=== PATIENT | female | born 1945 | race Caucasian/White ===

== ENCOUNTER → 2018-01-19 10:55 | Outpatient (CLI) | payer MEDICARE, SELFPAY ==
--- NOTE | 2018-01-19 | DI.MG.S_ITS ---
BILATERAL DIGITAL SCREENING MAMMOGRAM 3D/2D WITH CAD: 01/19/2018 CLINICAL: Routine screening. Comparison is made to exams dated: 01/08/2017 mammogram, 01/04/2016 mammogram, and 01/02/2015 mammogram - [facility]. The tissue of both breasts is heterogeneously dense. This may lower the sensitivity of mammography. Current study was also evaluated with a Computer Aided Detection (CAD) system. There is a biopsy clip in the left breast. No significant masses, calcifications, or other findings are seen in either breast. There has been no significant interval change. IMPRESSION: NEGATIVE There is no mammographic evidence of malignancy. A 1 year screening mammogram is recommended. This exam was interpreted at Station ID: [id number]. NOTE: For mammograms, a report in lay terms will be sent to the patient. Approximately 15% of breast malignancies will not be visualized mammographically. In the management of a palpable breast mass, a negative mammogram must not discourage biopsy of a clinically suspicious lesion. Electronically Signed By: Clayton andrews/lucien:01/19/2018 17:17:24 copy to: TONYA HEATH, fax: [phone] letter sent: Normal Exam ACR BI-RADS Category 1: Negative 3341F
== END ==
DX: Z12.31 Encounter for screening mammogram for malignant neoplasm of breast (principal)
CPT/HCPCS: 77063; 77067

== ENCOUNTER → 2018-08-03 15:07 | Outpatient (CLI) | payer MEDICARE, SELFPAY ==
[2018-08-03 16:10] LABS: BUN Creatinine Ratio 21.4 (6-22); Blood Urea Nitrogen 15 mg/dL (7-17); Estimated Glomerular Filt Rate > 60.0 mL/min (>60)
== END ==
DX: Z01.812 Encounter for preprocedural laboratory examination (principal)
CPT/HCPCS: 36415; 82565; 84520

== ENCOUNTER → 2018-08-05 14:49 | Outpatient (CLI) | payer MEDICARE, SELFPAY ==
--- NOTE | 2018-08-05 14:55 | DI.RAD.S_ITS ---
PROCEDURE: XR KNEE RT 3V INDICATIONS: R knee pain TECHNIQUE: 3 views of the knee were acquired. COMPARISON: None. FINDINGS: Bones: No fractures or dislocations. No suspicious bony lesions. Mild tricompartmental osteoarthritis. Soft tissues: Trace suprapatellar joint effusion. No suspicious soft tissue calcifications. IMPRESSION: 1. Mild tricompartmental osteoarthritis. 2. Trace, nonspecific joint effusion. Dictated by: Cierra Trevino MD, PhD on 08/05/2018 at 16:20 Approved by: Cierra Trevino MD, PhD on 08/05/2018 at 16:22
== END ==
PROVIDERS: Visit Provider Physician Assistant
DX: M25.561 Pain in right knee (principal); M17.11 Unilateral primary osteoarthritis, right knee; M25.461 Effusion, right knee
CPT/HCPCS: 73562

== ENCOUNTER → 2018-08-06 07:23 | Outpatient (CLI) | payer MEDICARE, SELFPAY ==
--- NOTE | 2018-08-06 | DI.MRI.S_ITS ---
PROCEDURE: MR KNEE RT WO CON INDICATIONS: RIGHT KNEE PAIN TECHNIQUE: Noncontrast sagittal PD fast spin echo and T2 fast spin echo with fat saturation, sagittal 3-D FLASH with fat saturation; coronal T1 spin echo and PD fast spin echo with fat saturation, and axial PD fast spin echo with fat saturation through the knee. COMPARISON: None. FINDINGS: Image quality: Excellent. Menisci: There is an oblique tear involving posterior horn of medial meniscus extending to inferior articulating surface. No evidence of focal lateral meniscal tear. The meniscal root ligaments appear intact. Cruciate ligaments: The anterior and posterior cruciate ligaments appear intact. Medial structures: There is low to moderate grade proximal MCL sprain and intrasubstance partial-thickness tear near its femoral insertion. The posterior oblique ligament, semimembranosus tendon insertions, oblique popliteal ligament, and meniscocapsular junction appear intact. Visualized portions of the pes anserinus tendons appear normal. No abnormal bursal fluid. Lateral structures: The lateral collateral ligament, long and short heads of the biceps femoris tendon appear intact. The popliteus tendon appears normal; the popliteofibular ligament appears intact. The posterosuperior and anteroinferior popliteomeniscal fascicles appear intact. The arcuate and fabellofibular ligaments appear intact, on either side of the lateral inferior geniculate artery. Iliotibial band appears normal. Anterior structures: The quadriceps and patellar tendons appear intact. Patellar alignment is normal. No femoral trochlear dysplasia or ventral trochlear prominence. No edema in the infrapatellar fat pad. Bones and cartilage: No bone marrow contusions or fractures. Uwzy-zi-ywdawran tricompartment osteoarthritis is seen with joint space narrowing, thinning of articulating cartilage is a subchondral sclerosis. Patellar cartilage is intact. Joint space: There is small to moderate amount of joint effusion. No Daniel's cyst. Normal appearing synovial plicae are incidentally noted. IMPRESSION: 1. Oblique tear involving posterior horn of medial meniscus extending to inferior articulating surface. No focal lateral meniscal tear. 2. Mild tricompartmental osteoarthritis. No marrow edema. No fracture or dislocation. Small amount of joint fluid. No gross loose body. 3. Cruciate ligaments are intact. Sprain and low to moderate grade intrasubstance partial-thickness tear involving proximal MCL near its femoral insertion. Dictated by: Justice Raya M.D. on 08/06/2018 at 8:39 Approved by: Justice Raya M.D. on 08/06/2018 at 8:42
--- NOTE | 2018-08-06 07:26 | DI.MRI.S_ITS ---
PROCEDURE: MR ABDOME PELVIS WWO CON INDICATIONS: Uterine fibroids on US TECHNIQUE: Coronal HASTE, axial 2D FLASH in- and [id number]; axial breath-hold T2 FSE; dynamic axial VIBE during IV gadolinium administration; postgadolinium coronal VIBE or 2D FLASH with fat saturation from the hepatic dome to the iliac crests. COMPARISON: [employer] [facility], US, US PELVIC COMPLETE, 08/03/2018, 9:03. FINDINGS: Image quality: Excellent. Lung bases: No basal pleural effusions. There are small bilateral pulmonary nodules within the visualized lung bases measuring up to approximately 4 mm in the left lower lobe. Solid organs: There are 2 small cysts in the liver, measuring up to 1.5 cm in the right lobe. Gallbladder appears within normal limits without gallstones. No biliary ductal dilatation. The pancreas is normal morphology. No peripancreatic edema or fluid collections. Spleen is normal in size. No adrenal nodules. Kidneys demonstrate no hydronephrosis. There are small cysts in the kidneys. Nodes and vessels: No mesenteric or retroperitoneal lymphadenopathy by size criteria. The aorta is normal in caliber. Bowel and peritoneum: Small and large bowel loops are normal in caliber. No intraperitoneal free fluid. Pelvis: Multiple intramural mass lesions are demonstrated within the uterus with hypointense signal on T1 and T2. The largest measures up to 2.6 x 2.8 x 2.8 cm within the right myometrium. No definite submucosal involvement. Following contrast administration, there is avid enhancement. In addition, within the left axilla, there is a mass measuring 2.8 x 2.7 x 2.3 cm demonstrating similar imaging characteristics with T1 and T2 hypointensity with enhancement following contrast administration. There is a a pedicle connecting the left adnexal mass to the uterus. The findings are compatible with a pedunculated exophytic fibroid. A few small nabothian cysts are demonstrated within the cervix. The ovaries are atrophic in size. Bones and soft tissues: Visualized osseous structures demonstrate no suspicious focal lesions. No ventral abdominal hernias. IMPRESSION: 1. Multiple uterine fibroids demonstrated as well as an exophytic left adnexal pedunculated subserosal fibroid. 2. Multiple small pulmonary nodules within the visualized lung bases. Recommend further evaluation with dedicated chest CT. Dictated by: Kapil Hidalgo M.D. on 08/06/2018 at 13:07 Approved by: Kapil Hidalgo M.D. on 08/06/2018 at 13:23
== END ==
DX: M25.561 Pain in right knee (principal); S83.411A Sprain of medial collateral ligament of right knee, initial encounter; S83.241A Other tear of medial meniscus, current injury, right knee, initial encounter; M17.11 Unilateral primary osteoarthritis, right knee; D25.1 Intramural leiomyoma of uterus; D25.2 Subserosal leiomyoma of uterus; N88.8 Other specified noninflammatory disorders of cervix uteri; N28.1 Cyst of kidney, acquired; R91.8 Other nonspecific abnormal finding of lung field
CPT/HCPCS: 72197; 73721; A9579

== ENCOUNTER → 2018-08-10 14:11 | Outpatient (CLI) | payer MEDICARE, SELFPAY ==
--- NOTE | 2018-08-10 14:17 | DI.CT.S_ITS ---
PROCEDURE: CT CHEST W CON INDICATIONS: Pulmonary nodules on lung bases seen on MRI TECHNIQUE: After the administration of intravenous contrast, 5 mm thick sections acquired from the pulmonary apices to the posterior costophrenic angles. 7 mm thick coronal and sagittal MIP reformats were acquired. For radiation dose reduction, the following was used: automated exposure control, adjustment of mA and/or kV according to patient size. COMPARISON: [facility], MR, MR ABDOMEN PELVIS [facility] CON, 08/06/2018, 8:45. FINDINGS: Image quality: Excellent. Lungs and pleura: No acute air space opacities. No pleural effusions or pneumothorax. Central and peripheral airways are patent and normal in caliber. Mediastinum: Heart size is normal. No pericardial effusion. No mediastinal or hilar adenopathy by size criteria. Thoracic aorta and central pulmonary arteries are normal in size. Esophagus is normal in caliber. No hiatal hernia. Bones and chest wall: No suspicious bony lesions. No vertebral body compression fractures. No axillary or supraclavicular adenopathy by size criteria. Thyroid gland appears normal. Abdomen: Visualized upper abdominal solid organs appear normal. Upper abdominal bowel loops are normal in caliber. IMPRESSION: Three small focal rounded nodule-like findings, 2 on the right and one on the left, at the lung bases during MR scanning 08/06/18 represent vessels seen end on, rather than true pulmonary nodules as can be seen in setting of metastatic disease. Several additional blood vessels elsewhere at the lung bases on CT scanning having similar size and orientation do not produce this MR artifact. No underlying malignancy is present. There is no suspicion for presence of pulmonary embolus (the vessels of interest are specifically pulmonary veins rather than pulmonary arteries). No abnormality is seen elsewhere. Dictated by: Brandon Marie M.D. on 08/11/2018 at 10:09 Approved by: Brandon Marie M.D. on 08/11/2018 at 10:55
== END ==
DX: R91.8 Other nonspecific abnormal finding of lung field (principal)
CPT/HCPCS: 71260; Q9967

== ENCOUNTER → 2019-02-16 11:07 | Outpatient (CLI) | payer MEDICARE, SELFPAY ==
--- NOTE | 2019-02-16 | DI.MG.S_ITS ---
BILATERAL DIGITAL SCREENING MAMMOGRAM 3D/2D WITH CAD: 02/16/2019 CLINICAL: Routine screening. Comparison is made to exams dated: 01/19/2018 mammogram, 01/08/2017 mammogram, and 01/04/2016 mammogram - [facility]. The tissue of both breasts is heterogeneously dense. This may lower the sensitivity of mammography. Current study was also evaluated with a Computer Aided Detection (CAD) system. There is an irregular asymmetry with a circumscribed margin in the left breast middle depth superior region seen on the mediolateral oblique view only. No other significant masses, calcifications, or other findings are seen in either breast. IMPRESSION: INCOMPLETE: NEEDS ADDITIONAL IMAGING EVALUATION The irregular asymmetry in the left breast is indeterminate. Additional views with possible ultrasound are recommended. This exam was interpreted at Station ID: [id number]. NOTE: For mammograms, a report in lay terms will be sent to the patient. Approximately 15% of breast malignancies will not be visualized mammographically. In the management of a palpable breast mass, a negative mammogram must not discourage biopsy of a clinically suspicious lesion. Electronically Signed By: Tonja yuen/lucien:02/16/2019 12:28:18 copy to: TONYA KRAUSE, TONYA SUTHERLAND, fax: [phone] letter sent: Additional Imaging Needed ACR BI-RADS Category 0: Incomplete 3340F
== END ==
DX: Z12.31 Encounter for screening mammogram for malignant neoplasm of breast (principal); R92.8 Other abnormal and inconclusive findings on diagnostic imaging of breast
CPT/HCPCS: 77063; 77067

== ENCOUNTER → 2019-03-04 10:13 | Outpatient (CLI) | payer MEDICARE, SELFPAY ==
--- NOTE | 2019-03-04 10:15 | DI.US.S_ITS ---
LIMITED ULTRASOUND OF LEFT BREAST: 03/04/2019 CLINICAL: Patient returns today to evaluate a focal asymmetry in the left breast. Comparison is made to exams dated: 02/16/2019 mammogram, 01/19/2018 mammogram, 01/08/2017 mammogram, 01/04/2016 mammogram, 01/02/2015 mammogram - [facility], and 02/18/2013 mammogram - [facility]. Color flow and real-time ultrasound of the left breast 1-2 o'clock region were performed. Franklin scale images of the real-time examination were reviewed. No abnormalities were seen sonographically in the left breast to correspond to the asymmetry on mammogram. IMPRESSION: PROBABLY BENIGN No abnormalities were seen sonographically in the left breast. A follow-up mammogram in 6 months is recommended to demonstrate stability of the asymmetry. Exam results were conveyed to the patient by the site promotion agent. This exam was interpreted at Station ID: [id number]. Electronically Signed By: Moises Boss M.D. slc/:03/23/2019 09:32:23 copy to: TONYA HEATH, fax: [phone] letter sent: Followup Recommended Ultrasound BI-RADS: 3 Probably benign
--- NOTE | 2019-03-04 10:15 | DI.MG.S_ITS ---
UNILATERAL LEFT DIGITAL DIAGNOSTIC MAMMOGRAM 3D/2D WITH ADDITIONAL VIEWS: 03/04/2019 CLINICAL: Additional evaluation requested from prior study. Comparison is made to exams dated: 01/19/2018 mammogram, 02/16/2019 mammogram, 01/04/2016 mammogram, 01/02/2015 mammogram, and 01/08/2017 mammogram - [facility]. The tissue of left breast is heterogeneously dense. This may lower the sensitivity of mammography. There is a 6 mm oval equal density asymmetry with a circumscribed margin in the left breast middle depth superior region seen on the mediolateral oblique view only. This is seen in additional views. No other significant masses or calcifications are seen in the breast. IMPRESSION: INCOMPLETE: NEEDS ADDITIONAL IMAGING EVALUATION The 6 mm oval equal density asymmetry in the left breast is indeterminate. An ultrasound is recommended. This exam was interpreted at Station ID: [id number]. NOTE: For mammograms, a report in lay terms will be sent to the patient. Approximately 15% of breast malignancies will not be visualized mammographically. In the management of a palpable breast mass, a negative mammogram must not discourage biopsy of a clinically suspicious lesion. Electronically Signed By: Moises Boss M.D. slc/:03/23/2019 09:37:40 ACR BI-RADS Category 0: Incomplete 3340F
== END ==
DX: R92.8 Other abnormal and inconclusive findings on diagnostic imaging of breast (principal); N64.89 Other specified disorders of breast
CPT/HCPCS: 76642; 77065; G0279

== ENCOUNTER → 2019-11-21 10:04 | Outpatient (CLI) | payer MEDICARE, SELFPAY ==
--- NOTE | 2019-11-21 10:06 | DI.MG.S_ITS ---
UNILATERAL LEFT DIGITAL DIAGNOSTIC MAMMOGRAM 3D/2D SHORT-TERM FOLLOW-UP: 11/21/2019 CLINICAL: Patient returns for a 6 month follow up of the left breast. Comparison is made to exams dated: 03/04/2019 mammogram and 02/16/2019 mammogram - [facility]. The tissue of left breast is heterogeneously dense. This may lower the sensitivity of mammography. There is an oval low density asymmetry with an indistinct margin in the left breast middle depth superior region seen on the mediolateral oblique view only. This is less prominent. No other significant masses or calcifications are seen in the breast. IMPRESSION: PROBABLY BENIGN The oval low density asymmetry in the left breast is probably benign. A follow-up mammogram in 6 months is recommended. A follow-up mammogram in 6 months is recommended to demonstrate stability. Patient will also be due for screening mammogram of contralateral right breast. This exam was interpreted at Station ID: [id number]. NOTE: For mammograms, a report in lay terms will be sent to the patient. Approximately 15% of breast malignancies will not be visualized mammographically. In the management of a palpable breast mass, a negative mammogram must not discourage biopsy of a clinically suspicious lesion. Electronically Signed By: Kapil holliday/:11/21/2019 10:58:57 letter sent: Followup Recommended ACR BI-RADS Category 3: Probably benign 3343F
== END ==
DX: R92.8 Other abnormal and inconclusive findings on diagnostic imaging of breast (principal); N64.89 Other specified disorders of breast
CPT/HCPCS: 77065; G0279

== ENCOUNTER → 2020-05-30 14:04 | Outpatient (CLI) | payer MEDICARE, SELFPAY ==
--- NOTE | 2020-05-30 14:05 | DI.MG.S_ITS ---
BILATERAL DIGITAL DIAGNOSTIC MAMMOGRAM 3D/2D: 05/30/2020 CLINICAL: Short follow up, due bilateral. Comparison is made to exams dated: 11/21/2019 mammogram, 03/04/2019 mammogram, and 02/16/2019 mammogram - [facility]. The tissue of both breasts is heterogeneously dense. This may lower the sensitivity of mammography. The 6 mm oval equal density asymmetry with a circumscribed margin in the left breast middle depth superior region seen on the mediolateral oblique view on prior mammogram studies only is no longer seen. No other significant masses, calcifications, or other findings are seen in either breast. IMPRESSION: BENIGN There is no mammographic evidence of malignancy. A 1 year screening mammogram is recommended. This exam was interpreted at Station ID: [id number]. NOTE: For mammograms, a report in lay terms will be sent to the patient. Approximately 15% of breast malignancies will not be visualized mammographically. In the management of a palpable breast mass, a negative mammogram must not discourage biopsy of a clinically suspicious lesion. Electronically Signed By: Florina garcias/:05/30/2020 14:42:56 letter sent: Normal Exam ACR BI-RADS Category 2: Benign Finding(s) 3342F
== END ==
PROVIDERS: PCP Family Medicine; Referring Provider Family Medicine
DX: R92.2 Inconclusive mammogram (principal); N64.89 Other specified disorders of breast
CPT/HCPCS: 77066; G0279

== ENCOUNTER → 2021-11-28 10:25 | Outpatient (CLI) | payer MEDICARE, SELFPAY ==
--- NOTE | 2021-11-28 | DI.MG.S_ITS ---
BILATERAL DIGITAL SCREENING MAMMOGRAM 3D/2D WITH CAD: 11/28/2021 CLINICAL: Routine screening. Comparison is made to exams dated: 05/30/2020 mammogram, 02/16/2019 mammogram, and 01/19/2018 mammogram - [facility]. The tissue of both breasts is heterogeneously dense. This may lower the sensitivity of mammography. Current study was also evaluated with a Computer Aided Detection (CAD) system. There is a biopsy clip in the left breast. No significant masses, calcifications, or other findings are seen in either breast. There has been no significant interval change. IMPRESSION: NEGATIVE There is no mammographic evidence of malignancy. A 1 year screening mammogram is recommended. This exam was interpreted at Station ID: [id number]. NOTE: For mammograms, a report in lay terms will be sent to the patient. Approximately 15% of breast malignancies will not be visualized mammographically. In the management of a palpable breast mass, a negative mammogram must not discourage biopsy of a clinically suspicious lesion. Electronically Signed By: Adrián Nichols acr/lucien:11/28/2021 13:47:57 letter sent: Normal Exam ACR BI-RADS Category 1: Negative 3341F
== END ==
PROVIDERS: PCP Family Medicine; Referring Provider Family Medicine; Visit Provider Family Medicine
DX: Z12.31 Encounter for screening mammogram for malignant neoplasm of breast (principal)
CPT/HCPCS: 77063; 77067

== ENCOUNTER → 2022-12-01 12:30 | Outpatient (CLI) | payer MEDICARE, SELFPAY ==
--- NOTE | 2022-12-01 | DI.MG.S_ITS ---
BILATERAL DIGITAL SCREENING MAMMOGRAM 3D/2D WITH CAD: 12/01/2022 CLINICAL: Routine screening. Comparison is made to exams dated: 11/28/2021 mammogram, 05/30/2020 mammogram, 02/16/2019 mammogram, 11/21/2019 mammogram, and 03/04/2019 mammogram - [facility]. Both breasts are heterogeneously dense, which may obscure small masses (category c / 51-75% glandular tissue). Current study was also evaluated with a Computer Aided Detection (CAD) system. There is a biopsy clip in the left breast. No significant masses, calcifications, or other findings are seen in either breast. There has been no significant interval change. IMPRESSION: NEGATIVE There is no mammographic evidence of malignancy. A 1 year screening mammogram is recommended. Based on the Tyrer Cuzick model (a risk assessment model) the patient's lifetime risk is 5.9% and her 10 year risk is 5.9%. According to the ACR, ACS, and NCCN guidelines, an annual breast MRI exam along with mammogram is recommended if the patient's lifetime risk is 20% or greater. This exam was interpreted at Station ID: [id number]. NOTE: For mammograms, a report in lay terms will be sent to the patient. Approximately 15% of breast malignancies will not be visualized mammographically. In the management of a palpable breast mass, a negative mammogram must not discourage biopsy of a clinically suspicious lesion. Electronically Signed By: Schuyler lopez/lucien:12/01/2022 13:12:20 letter sent: Normal Exam ACR BI-RADS Category 1: Negative 3341F
== END ==
PROVIDERS: PCP Family Medicine; Referring Provider Family Medicine; Visit Provider Family Medicine
DX: Z12.31 Encounter for screening mammogram for malignant neoplasm of breast (principal)
CPT/HCPCS: 77063; 77067

== ENCOUNTER 2023-05-06 11:51 | Day surgery (SDC) | payer MEDICARE, SELFPAY ==
--- NOTE | 2023-05-06 | PATH_ITS ---
[facility] Accession Number: [id number] No. of containers..01 Tissue . 01 Material submitted: . colon - CECAL POLYP . 01 Diagnosis: Cecal Polyp: Tubular adenoma. MRV 05/08/2023 1231 Local . 01 Electronically signed: . Smith Kapoor MD, PhD, Pathologist NPI- [id number] . 01 Gross description: . CECAL POLYP: Received in formalin is 2 fragment(s) of rodriguez, soft tissue measuring 0.9 x 0.3 x 0.2 cm to 0.4 x 0.2 x 0.1 cm submitted entirely in 1 cassette(s) /AAY 05/07/2023 0356 Local . 01 Pathologist provided ICD-10: D12.0 . 01 CPT . 900087 Specimen Comment: A courtesy copy of this report has been sent to [phone] Performed at: 01 [facility] [address] [place] [address], [place], [place] [id number] MD Kapil Dwyer MD Phone: [phone]
[2023-05-06 12:10] VITALS: BMI 23.3
[2023-05-06 12:22] VITALS: BP 117/68; PULSE 70; RESP 16; TEMP 36.3; O2SAT 97
[2023-05-06] MEDS: LACTATED RINGERS 1,000 ML 42 ML IV (12:24)
--- NOTE | 2023-05-06 12:34 | P.HP_ITS ---
History of Present Illness History of Present Illness Date Patient Seen: 05/06/23 Time Patient Seen: 12:34 Chief complaint: SDC Narrative: Vinod is a 78-year-old woman who is here for colonoscopy. Her last 1 was about 10 years ago and was normal. She recently had a positive Cologuard test. 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 History of third molar tooth extraction Status post tubal ligation Social History household members: spouse Smoking Status: Former smoker alcohol intake: current Meds Home Medications and Allergies Home Medications Medication Instructions Recorded Confirmed Type pravastatin 20 mg tablet 20 mg PO HS ##0 02/02/17 05/06/23 History levothyroxine 25 mcg tablet 25 mcg PO DAILY 08/03/18 05/06/23 History sertraline 25 mg tablet (Zoloft) 50 mg PO DAILY 03/31/23 05/06/23 History sodium,potassium,mag sulfates 17.5 See Rx Instructions PO .COMPLEX 03/31/23 05/06/23 Rx gram-3.13 gram-1.6 gram oral soln #354 mL (Suprep Bowel Prep Kit) aspirin 81 mg capsule 81 mg PO DAILY 05/06/23 05/06/23 History Allergies Allergy/AdvReac Type Severity Reaction Status Date / Time Penicillins [PENICILLINS] Allergy Severe RASH Verified 05/06/23 12:05 Cephalosporins AdvReac elevated Verified 05/06/23 12:05 BP Exam Vital Signs (past 8 hours): - 05/06/23 12:22 Temperature 97.3 F L Pulse Rate 70 Respiratory Rate 16 Blood Pressure 117/68 Pulse Oximetry 97 Const General: No acute distress Assessment & Plan Assessment and plan (1) Positive FIT (fecal immunochemical test): Status: Acute Plan We reviewed the risks and benefits of colonoscopy and she would like to proceed.
--- NOTE | 2023-05-06 13:29 | PM.OP.COLON ---
Operative Date/Time/Diagnoses Date of procedure: 05/06/23 Time of procedure: 13:29 Pre-op diagnosis: Positive fecal immunohistochemical test Post-op diagnosis: same Procedure & Clinicians Study performed: Colonoscopy Same procedure as scheduled: Yes Surgeon: Lamberto Tom Procedure Notes Procedure in detail: Surgeon: Lamberto Tom MD Anesthesia: Janet Soto DO Procedure: The patient was brought to the endoscopy suite, placed in left lateral decubitus position. The patient was connected to monitoring devices. A time-out was performed. Sedation was administered. Once the patient was adequately sedated, a digital rectal exam was performed and was normal. The scope was then inserted and advanced to the cecum where the appendiceal orifice was identified and photographed. The scope was then slowly withdrawn over greater than 6 minutes. The mucosa was thoroughly inspected. There was 2 mm polyp in the cecum removed with a cold snare. Other abnormalities were found throughout the colon. The scope was retroflexed in the rectum. Internal hemorrhoids were noted. The scope was straightened and removed. The patient was awakened and brought to recovery. Scope withdrawal time: 11 minutes Sedation time: 25 minutes EBL: 5 mL Findings: 2 mm cecal polyp and internal hemorrhoids Post-procedure Disposition: PACU
[2023-05-06 13:30] VITALS: BP 125/66; PULSE 61; RESP 15; TEMP 36.9; O2SAT 95
[2023-05-06 13:35] VITALS: BP 125/69; PULSE 62; RESP 12; O2SAT 99
[2023-05-06 13:40] VITALS: BP 134/74; PULSE 66; RESP 12; O2SAT 100
[2023-05-06 13:55] VITALS: BP 136/72; PULSE 66; RESP 18; O2SAT 100
[2023-05-06 14:10] VITALS: BP 146/77; PULSE 64; RESP 12; O2SAT 100
== END 2023-05-06 14:15 | disposition home or self-care (01) ==
PROVIDERS: PCP Registered Nurse; Referring Provider Surgery; Visit Provider Surgery
PROC: 0DJD8ZZ Inspection of Lower Intestinal Tract, Via Natural or Artificial Opening Endoscopic (ICD-10-PCS; CPT 45378; principal; 2023-05-06 13:00)
DX: Z12.11 Encounter for screening for malignant neoplasm of colon (principal); R19.5 Other fecal abnormalities; K64.8 Other hemorrhoids; D12.0 Benign neoplasm of cecum
CPT/HCPCS: 45385; J2704

== ENCOUNTER → 2023-11-09 10:10 | Outpatient (CLI) | payer OTHER, SELFPAY ==
--- NOTE | 2023-11-09 10:11 | DI.RAD.S_ITS ---
PROCEDURE: XR DEXA AXIAL SKELETON INDICATIONS: Screening for osteoporosis COMPARISON: [facility], [place], DEXA AXIAL SKELETON, 02/23/2015, 15:17. FINDINGS: Lumbar Spine: Bone mineral density 1.023 g/cm2, T score -0.2. Left Hip: Bone mineral density 0.844 g/cm2, T score -0.8. Left Femoral Neck: Bone mineral density 0.622 g/cm2, T score -2.0. Right Hip: Bone mineral density 0.838 g/cm2, T score -0.9. Right Femoral Neck: Bone mineral density 0.606 g/cm2, T score -2.2. Fracture Risk Calculation (when applicable): 10-year fracture risk of a major osteoporotic fracture 14% and of a hip fracture 4.1%. (T score greater or equal to -1.0 to: NORMAL) (T score from -1.1 to -2.4: OSTEOPENIA) (T score less than or equal to -2.5: OSTEOPOROSIS) IMPRESSION: Osteopenia. Dictated by: Moises Boss M.D. on 11/09/2023 at 22:04 Approved by: Moises Boss M.D. on 11/09/2023 at 22:06
== END ==
LOC: RAD 10:10
PROVIDERS: PCP Registered Nurse; Referring Provider Registered Nurse; Visit Provider Registered Nurse
DX: Z78.0 Asymptomatic menopausal state (principal); Z13.820 Encounter for screening for osteoporosis; M85.89 Other specified disorders of bone density and structure, multiple sites
CPT/HCPCS: 77080

== ENCOUNTER → 2023-12-01 15:25 | Outpatient (CLI) | payer OTHER, SELFPAY ==
--- NOTE | 2023-12-01 15:27 | DI.US.S_ITS ---
PROCEDURE: US CAROTID DOPPLER BI INDICATIONS: Bilateral carotid artery stenosis TECHNIQUE: Color and pulse Doppler interrogation was performed of both carotid systems, with image documentation and velocity measurements. COMPARISON: None. FINDINGS: Stenosis calculations are based on SRU (Society of Radiologists in Ultrasound) criteria. Right side: Brachial blood pressure: 140/72 mm Hg. Common carotid artery peak systolic velocity: 77 cm/sec. Internal carotid artery peak systolic velocity: 54 cm/sec. Internal carotid artery end diastolic velocity: 13 cm/sec. External carotid artery peak systolic velocity: 66 cm/sec. ICA/CCA peak systolic ratio: 0 point . Franklin scale imaging description: Minimal plaquing Percent internal carotid artery stenosis: Less than 50% . Vertebral artery: Flow direction is antegrade. Left side: Brachial blood pressure: 138/70 mm Hg. Common carotid artery peak systolic velocity: 77 cm/sec. Internal carotid artery peak systolic velocity: 126 cm/sec. Internal carotid artery end diastolic velocity: 25 cm/sec. External carotid artery peak systolic velocity: 77 cm/sec. ICA/CCA peak systolic ratio: 1.7 . Franklin scale imaging description: Minimal plaque Percent internal carotid artery stenosis: 50-69%. Vertebral artery: Flow direction is antegrade. IMPRESSION: 1. 50-69% left internal carotid stenosis. 2. Less than 50% right internal carotid stenosis. 3. Antegrade vertebral artery flow bilaterally. Dictated by: Arian Hodges M.D. on 12/02/2023 at 9:52 Approved by: Arian Hodges M.D. on 12/02/2023 at 9:54
== END ==
LOC: US 15:26
PROVIDERS: PCP Registered Nurse; Referring Provider Registered Nurse; Visit Provider Registered Nurse
DX: I65.23 Occlusion and stenosis of bilateral carotid arteries (principal)
CPT/HCPCS: 93880

== ENCOUNTER → 2023-12-08 12:38 | Outpatient (CLI) | payer OTHER, SELFPAY ==
--- NOTE | 2023-12-08 12:38 | DI.MG.S_ITS ---
BILATERAL DIGITAL SCREENING MAMMOGRAM 3D/2D WITH CAD: 12/08/2023 CLINICAL: Routine screening. Comparison is made to exams dated: 12/01/2022 mammogram, 11/28/2021 mammogram, and 05/30/2020 mammogram - [facility]. Both breasts are heterogeneously dense, which may obscure small masses (category c / 51-75% glandular tissue). Current study was also evaluated with a Computer Aided Detection (CAD) system. There is a biopsy clip in the left breast. No significant masses, calcifications, or other findings are seen in either breast. There has been no significant interval change. IMPRESSION: NEGATIVE There is no mammographic evidence of malignancy. A 1 year screening mammogram is recommended. Based on the Tyrer Cuzick model (a risk assessment model) the patient's lifetime risk is 5.4% and her 10 year risk is 0.0%. According to the ACR, ACS, and NCCN guidelines, an annual breast MRI exam along with mammogram is recommended if the patient's lifetime risk is 20% or greater. This exam was interpreted at Station ID: [id number]. NOTE: For mammograms, a report in lay terms will be sent to the patient. Approximately 15% of breast malignancies will not be visualized mammographically. In the management of a palpable breast mass, a negative mammogram must not discourage biopsy of a clinically suspicious lesion. Electronically Signed By: Schuyler lopez/lucien:12/08/2023 15:59:55 letter sent: Normal Exam ACR BI-RADS Category 1: Negative [id number]
== END ==
PROVIDERS: PCP Registered Nurse; Referring Provider Registered Nurse; Visit Provider Registered Nurse
DX: Z12.31 Encounter for screening mammogram for malignant neoplasm of breast (principal); R92.333 Mammographic heterogeneous density, bilateral breasts
CPT/HCPCS: 77063; 77067

== ENCOUNTER → 2024-12-16 | Outpatient (CLI) | payer OTHER, SELFPAY ==
--- NOTE | 2024-12-16 15:51 | DI.MG.S_ITS ---
MM screening mammo BI: 12/16/2024. BI-RADS: 2 CLINICAL: 79-year old female for bilateral screening mammogram. Tyrer-Cuzick lifetime risk of 3.0%. No personal or first-degree family history of breast cancer. PRIOR EXAMS 12/08/2023, 12/01/2022, 11/28/2021, 05/30/2020, 11/21/2019, 03/04/2019, 02/16/2019, 01/19/2018, 01/08/2017, 01/04/2016, 01/02/2015. MAMMOGRAPHY TECHNIQUE: 2D and 3D (tomosynthesis) digital mammographic views obtained, with additional images as needed for full coverage. Current study was also evaluated with a Computer Aided Detection (CAD) system. DENSITY C. The breasts are heterogeneously dense, which may obscure small masses. MAMMOGRAPHY FINDINGS Right: No suspicious mass, asymmetry, microcalcification, or other abnormality seen. Left: Surgical clip present on the left. There are no suspicious masses, calcifications, or other findings in the breast. IMPRESSION: Right * No evidence of malignancy. Left * No evidence of malignancy with benign findings. RECOMMENDATIONS Bilateral * Annual screening mammography. OVERALL ASSESSMENT CATEGORY BI-RADS-2: Benign. The [employer] recommends annual screening mammography beginning at age 40 for women with average risk of breast cancer. ELECTRONICALLY SIGNED: Dunia Fowler M.D. on 12/19/2024 at 08:38:17 AM PT Interpreting Station ID: [id number]
== END ==
LOC: MAMMO 15:50
PROVIDERS: PCP Family Medicine; Referring Provider Family Medicine; Visit Provider Family Medicine
DX: Z12.31 Encounter for screening mammogram for malignant neoplasm of breast (principal); R92.333 Mammographic heterogeneous density, bilateral breasts
CPT/HCPCS: 77063; 77067

== ENCOUNTER → 2025-04-04 08:19 | Outpatient (CLI) | payer OTHER, SELFPAY ==
--- NOTE | 2025-04-04 08:21 | DI.US.S_ITS ---
PROCEDURE: US CAROTID DOPPLER BI INDICATIONS: BILAT CAROTID ARTERY STENOSIS TECHNIQUE: Color and pulse Doppler interrogation was performed of both carotid systems, with image documentation and velocity measurements. COMPARISON: [facility], , US CAROTID DOPPLER BI, 12/01/2023, 15:41. FINDINGS: Stenosis calculations are based on SRU (Society of Radiologists in Ultrasound) criteria. Right side: Brachial blood pressure: 145/69 mm Hg. Common carotid artery peak systolic velocity: 68 cm/sec. Internal carotid artery peak systolic velocity: 78 cm/sec. Internal carotid artery end diastolic velocity: 22 cm/sec. External carotid artery peak systolic velocity: 64 cm/sec. ICA/CCA peak systolic ratio: 1.2 Franklin scale imaging description: No significant intraluminal plaque. Waveforms are normal without spectral broadening. . Percent internal carotid artery stenosis: Normal . Vertebral artery: Flow direction is antegrade. Left side: Brachial blood pressure: 149/75 mm Hg. Common carotid artery peak systolic velocity: 63 cm/sec. Internal carotid artery peak systolic velocity: 97 cm/sec. Internal carotid artery end diastolic velocity: 26 cm/sec. External carotid artery peak systolic velocity: 66 cm/sec. ICA/CCA peak systolic ratio: 1.5 . Franklin scale imaging description: Small amount of calcified plaque at the carotid bulb and sessile calcified plaque at the proximal ICA. The waveforms remain normal. Percent internal carotid artery stenosis: Less than 50% . Vertebral artery: Flow direction is antegrade. IMPRESSION: 1. In the right carotid artery, there is no hemodynamically significant stenosis based on peak systolic velocity criteria. 2. In the left carotid artery, there is no hemodynamically significant stenosis based on peak systolic velocity criteria. 3. Antegrade vertebral arteries. 4. No significant change in plaque burden compared to the prior exam. Dictated by: Tonja Liriano M.D. on 04/04/2025 at 10:04 Approved by: Tonja Liriano M.D. on 04/04/2025 at 10:10
== END ==
PROVIDERS: PCP Family Medicine; Referring Provider Family Medicine; Visit Provider Family Medicine
DX: I65.23 Occlusion and stenosis of bilateral carotid arteries (principal)
CPT/HCPCS: 93880